=== PATIENT | female | born 1985 | race Caucasian/White ===

== ENCOUNTER 2024-09-28 02:43 | Emergency (ER) | payer OTHER ==
[~2024-09-28] VITALS: Ht 154.9 cm; Wt 62.6 kg
[2024-09-28 02:54] VITALS: BP 149/84
[2024-09-28] MEDS ORDERED: SODIUM CHLORIDE 0.9% 500 ML IV ONE (03:00)
[2024-09-28] MEDS ORDERED: HYDROmorphONE Hydrochloride 0.5 MG/0.5 ML SYRINGE IV ONE (03:05)
[2024-09-28 03:16] LABS: BILIRUBIN Negative (Negative); BLOOD Negative (Negative); CLARITY Cloudy (Clear); COLOR Yellow (Yellow); GLUCOSE Negative (Negative); KETONE Trace (Negative); LEUKO ESTERASE 2+ (Negative); NITRITE Negative (Negative); PH 6.5 (4.5-8.0); SPECIFIC GRAVITY 1.025 (1.001-1.030)
[2024-09-28 03:18] LABS: BASO % 0.5 % (0.0-1.0); EOS # 0.1 10*3/uL (0.0-0.4); EOS % 0.9 % (1.0-4.0); HEMATOCRIT 40.9 % (37.0-47.0); MEAN CELL VOLUME 88.9 fl (81.0-99.0); MEAN CORPUSCULAR HGB 30.4 pg (27.0-31.0); MEAN CORPUSCULAR HGB CONC 34.2 g/dl (33.0-37.0); MEAN PLATELET VOLUME 8.9 fl (9.6-12.3); MONO # 0.8 10*3/uL (0.1-1.0); MONO % 9.5 % (3.0-9.0); NEUT # 4.9 10*3/uL (2.3-7.9); NEUT % 59.6 % (47.0-73.0); PLATELET COUNT AUTOMATED 317 10*3/uL (130-400); RED CELL DISTRI WIDTH 11.9 % (0-14.5); WHITE BLOOD COUNT 8.2 10*3/uL (4.8-10.8)
[2024-09-28] MEDS ORDERED: IOHEXOL 300 MG/ML 100 ML VIAL ONE (03:31)
[2024-09-28 03:37] LABS: BUN 11 mg/dl (9-23); CHLORIDE 104 mmol/L (98-107); POTASSIUM 3.4 mmol/L (3.4-5.1)
[2024-09-28 03:39] LABS: TOTAL PROTEIN 7.5 gm/dL (6.0-8.0)
[2024-09-28 03:54] LABS: BACTERIA 3+; EPITHELIAL CELLS TNTC
[2024-09-28 03:55] LABS: WBC 16-20 wbc/hpf (0-5); YEAST TRACE
[2024-09-28] MEDS ORDERED: CIPRO500 MG PO (06:39)
[2024-09-28 07:28] VITALS: BP 115/69
[2024-09-28] MEDS ORDERED: Piperacillin Sodium/Tazobact 100 ML IV ONE (07:45)
[2024-09-28] MEDS ORDERED: SODIUM CHLORIDE 0.9% 1,000 ML IV ONE (10:40)
[2024-09-28] MEDS ORDERED: MORPHINE Sulfate 2 MG/ML SYR IV PRN (11:40)
[2024-09-28] MEDS ORDERED: BISACODYL 5 MG TAB PO PRN ×2 (11:40→13:00)
[2024-09-28] MEDS ORDERED: Magnesium Hydroxide 30 ML UDC PO PRN ×2 (11:40→13:00)
[2024-09-28] MEDS ORDERED: Ondansetron Hydrochloride 4 MG/2 ML VIAL IV PRN ×2 (11:40→13:00)
[2024-09-28] MEDS ORDERED: BISACODYL 10 MG SUPP R PRN ×2 (11:40→13:00)
[2024-09-28] MEDS ORDERED: ACETAMINOPHEN 325 MG TAB PO PRN (11:40)
[2024-09-28] MEDS ORDERED: ACETAMINOPHEN 650 MG SUPP R PRN (11:40)
[2024-09-28] MEDS ORDERED: Acetaminophen/Hydrocodone 5 MG/325 MG TABLET PO PRN ×2 (11:40→13:00)
[2024-09-28] MEDS ORDERED: Pantoprazole Sodium 40 MG VIAL IV PRN (11:45)
[2024-09-28] MEDS ORDERED: Pantoprazole Sodium 40 MG TAB PO PRN (11:45)
[2024-09-28] MEDS ORDERED: PERCOCET 5-3251 EACH PO ×2 (12:51→12:54)
[2024-09-28] MEDS ORDERED: fentaNYL CITRATE 100 MCG/2 ML VIAL IV PRN (13:00)
[2024-09-28] MEDS ORDERED: Piperacillin Sodium/Tazobact 50 ML IV SCH (16:00)
[2024-09-29] MEDS ORDERED: Enoxaparin Sodium 40 MG/0.4 ML SYR SC SCH (10:00)
== END 2024-09-28 13:24 | disposition admitted as inpatient to this hospital (09) ==
LOC: ED 02:43 → EDHOLD 10:50 → ED 13:24
PROVIDERS: Internal Medicine
DX: K80.40 Calculus of bile duct with cholecystitis, unspecified, without obstruction (principal); K82.8 Other specified diseases of gallbladder; R11.2 Nausea with vomiting, unspecified; G43.909 Migraine, unspecified, not intractable, without status migrainosus; R10.11 Right upper quadrant pain